=== PATIENT | female | born 1980 | race Caucasian/White ===

== ENCOUNTER 2018-11-20 20:07 | Emergency (ER) | payer BC ==
--- NOTE | 2018-11-20 20:58 | EDM.PDOC ---
ED HPI GENERAL MEDICAL PROBLEM - General Chief Complaint: General Stated Complaint: rash Time Seen by Provider: 11/20/18 20:33 Source of Information: Reports: Patient History Limitations: Reports: No Limitations - History of Present Illness INITIAL COMMENTS - FREE TEXT/NARRATIVE: Patient has had rash on lower legs since last fall. This rash has never seemed to improve/go away despite OTC antibiotic creams, essential oils, and elimination diet. Rash suddenly worsened over the last few days. Now involves trunk/legs/arms. Pruritic. Feels "hot". Area of rash on lower leg coalesced into larger round spot that weeps fluid at times. No fevers/chills/systemic changes. No history of similar rashes. Has not tried applying any steroids to the rash. - Related Data Allergies Allergy/AdvReac Type Severity Reaction Status Date / Time ciprofloxacin [From Cipro] Allergy Other Verified 11/20/18 20:16 Sulfa (Sulfonamide Allergy Rash Verified 11/20/18 20:16 Antibiotics) Home Meds: Home Meds . [No Known Home Meds] 11/20/18 [History] Past Medical History [employer] History: Reports: - Past Surgical History HEENT Surgical History: Reports: Other (See Below) Other HEENT Surgeries/Procedures: wisdom teeth removed/cyst,impacted teeth Musculoskeletal Surgical History: Reports: Other (See Below) Other Musculoskeletal Surgeries/Procedures:: ACL repair Rt knee Social & Family History - Tobacco Use Smoking Status *Q: Never Smoker - Caffeine Use Caffeine Use: Reports: Coffee Other Caffeine Use: couple days a week - Recreational Drug Use Recreational Drug Use: No ED ROS GENERAL - Review of Systems Review Of Systems: ROS reveals no pertinent complaints other than HPI. ED EXAM, GENERAL - Physical Exam Exam: See Below Exam Limited By: No Limitations General Appearance: Alert, WD/WN, No Apparent Distress Eye Exam: Bilateral Eye: EOMI, PERRL Head: Atraumatic, Normocephalic Neck: Supple Respiratory/Chest: No Respiratory Distress Cardiovascular: No Edema GI/Abdominal: Soft (Female) Exam: Deferred Rectal (Female) Exam: Deferred Neurological: Alert, Oriented, Normal Cognition, Normal Gait Psychiatric: Normal Affect, Normal Mood Skin Exam: Warm, Other (macular papular rash with follicular component noted. Worse on lower legs. One large coalesced lesion on anterior hendrix that is over an inch across. No blisters noted. No scale. No wheal/flare component. No active drainage. Lesions scattered on trunk/arms also but appear to spare neck and face/scalp. ) Course - Vital Signs Last Recorded V/S: Last Vital Signs Temp 37.2 C 11/20/18 20:10 Pulse 96 11/20/18 20:10 Resp 16 11/20/18 20:10 BP 124/78 11/20/18 20:10 Pulse Ox 100 11/20/18 20:10 - Orders/Labs/Meds Orders: Active Orders 24 hr Category Date Time Status CULTURE WOUND + SMEAR [RM] Stat Lab 11/20/18 20:50 Ordered Meds: Medications Discontinued Medications Generic Name Dose Route Start Last Admin Trade Name Freq PRN Reason Stop Dose Admin Diphenhydramine HCl 50 mg 11/20/18 21:03 11/20/18 21:16 Benadryl PO 11/20/18 21:04 50 mg ONETIME ONE Administration Doxycycline Hyclate 100 mg 11/20/18 20:56 11/20/18 21:16 Vibramycin PO 11/20/18 20:57 100 mg ONETIME ONE Administration - Re-Assessments/Exams Free Text/Narrative Re-Assessment/Exam: Rash lesions appear to have follicle in center of lesions, indicating a folliculitis. Cannot rule our MRSA infection. Does not appear consistent with fungal infection or contact dermatitis. Does not appear allergic/hive in appearance. Plan at this time is to cover patient with 2 week course of Doxycycline. If rash responds but does not completely clear she will need an additional 2 weeks extension of treatment. Attempt to culture the larger leg lesion. Culture and smear pending. To follow up with primary provider next week. Precautions reviewed prior to discharge. To follow up in ER if she experiences sudden worsening. May need referral to Derm if no improvement is noted. Departure - Departure Time of Disposition: 21:10 Disposition: Home, Self-Care 01 Condition: Good Clinical Impression: Folliculitis - Discharge Information *PRESCRIPTION DRUG MONITORING PROGRAM REVIEWED*: Not Applicable *COPY OF PRESCRIPTION DRUG MONITORING REPORT IN PATIENT KRISTINA: Not Applicable Instructions: Diphenhydramine capsules or tablets, Doxycycline tablets or capsules Referrals: Marjan Calle PA-C [Primary Care Provider] - Forms: ED Department Discharge Additional Instructions: Watch rash carefully to see if it improves with the Doxy. If it does not appear to improve over the next 72 hours, follow up with your doctor for a recheck. You may need referral to Dermatology if symptoms continue despite antibiotics. We did try to obtain a sample for a culture tonight. This will take several days for the lab to process. You will have a single refill available for the Doxy as it can take 2-4 weeks to clear up a bad case of folliculitis. Benadryl may help itching. Oatmeal bath soaks can also help itching. Do not shave until rash improves as it can spread the bacteria if this is indeed an infection. Follow up otherwise as needed if you have worsening problems. Recommend recheck with your own provider next Sunday or Sunday. - My Orders Last 24 Hours: My Active Orders 11/20/18 20:50 CULTURE WOUND + SMEAR [RM] Stat - Assessment/Plan Last 24 Hours: My Active Orders 11/20/18 20:50 CULTURE WOUND + SMEAR [RM] Stat
[2018-11-20] MEDS: Doxycycline 100 MG Cap PO ONE (21:16)
[2018-11-20] MEDS: diphenhydrAMINE 25 MG Cap PO ONE (21:16)
== END 2018-11-20 21:19 | disposition home or self-care (01) ==
LOC: LL.ED 20:07
DX: L73.9 Follicular disorder, unspecified (principal); Z88.1 Allergy status to other antibiotic agents; Z88.2 Allergy status to sulfonamides
CPT/HCPCS: 87070; 87077; 87186; 87205; 99283; A9270-GY